=== PATIENT | male | born 1955 | race Caucasian/White ===

== ENCOUNTER 2018-12-14 14:01 | Emergency (ER) | payer SELFPAY ==
[~2018-12-14] VITALS: Ht 182.9 cm; Wt 86.2 kg
--- NOTE | 2018-12-14 14:09 | NUR ---
PATIENT STATES HE FELL OFF A LADDER JUST NOW AND C/O RIGHT UPPER ARM AND RIB PAIN. DENIES HITING HIS HEAD.
[2018-12-14] MEDS ORDERED: HYDROCODONE/APAP 5-325MG TABLET PO ONE (14:30)
[2018-12-14] MEDS ORDERED: HYDROCODONE/APAP 5-325MG TABLET ONE (14:30)
[2018-12-14] MEDS ORDERED: ONDANSETRON 4 MG/2 ML VIAL IV ONE (15:15)
[2018-12-14] MEDS ORDERED: IV NORMAL SALINE 1000 ML BAG IV ONE (15:15)
[2018-12-14] MEDS ORDERED: MORPHINE SULFATE 4 MG/1 ML DISP.SYRIN IV ONE (15:15)
[2018-12-14] MEDS ORDERED: MORPHINE SULFATE 4 MG/1 ML DISP.SYRIN ONE (15:24)
[2018-12-14] MEDS ORDERED: ONDANSETRON 4 MG/2 ML VIAL ONE (15:24)
[2018-12-14] MEDS ORDERED: PROPOFOL 200 MG/20 ML BOTTLE ONE (15:35)
--- NOTE | 2018-12-14 15:44 | NUR ---
PATIENT STATES PAIN "IS GETING WORSE". DR BOOTHE AWARE.
--- NOTE | 2018-12-14 16:00 | NUR ---
CLOSED REDUCTON OF SHOULDER PRFORMED BY DR BOOTHE. PATIENT TOLERATED IT WELL. WE HAD MD, RN AND RT AT BEDSIDE DURING SEDATION/PROCEDURE.
--- NOTE | 2018-12-14 16:07 | NUR ---
PATIENT IS AWAKE, ALERT, ORIENTED. STATES PAIN IN SHOULDER HAS DIMINISHED.
[2018-12-14] MEDS ORDERED: PROPOFOL 1,000 MG/100 ML BOTTLE IV ONE (16:30)
--- NOTE | 2018-12-14 17:18 | NUR ---
IV removed. Catheter intact and site benign. Pressure and 4x4 gauze applied to site. No bleeding noted.
--- NOTE | 2018-12-14 17:18 | NUR ---
PATIENT IS AWAKE AND ALERT IN NO DISTRESS. SHOULDER IMMOBILIZER ON PER MD. FRIEND AT BEDSIDE, TO DRIVE HIM HOME. PATIENT STATES HE UNDERSTANDS NO DRIVING NO ALCOHOL TODAY.
--- NOTE | 2018-12-14 17:19 | NUR ---
DC, RX (INLCLUDING PRECAUTIONS) AND FOLLOW UP INSTRUCTIONS GIVEN AND EXPLAINED TO PATIENT AND FRIEND WHO STATE THEY UNDERSTAND ALL INSTRUCTIONS.
== END 2018-12-14 17:21 | disposition home or self-care (01) ==
LOC: ER 14:01
DX: S42.251A Displaced fracture of greater tuberosity of right humerus, initial encounter for closed fracture (principal); R07.81 Pleurodynia; W11.XXXA Fall on and from ladder, initial encounter; Y93.89 Activity, other specified; Y92.89 Other specified places as the place of occurrence of the external cause; Y99.8 Other external cause status
CPT/HCPCS: 23650; 71101; 73020; 73030; 96374; 99285; J2270; J2405; A4663; J3490; J7030